=== PATIENT | male | born 1985 | race Caucasian/White ===

== ENCOUNTER 2019-06-15 20:23 | Emergency (ER) | payer OTHER ==
--- NOTE | 2019-06-15 21:57 | EDM.PDOC ---
ED HPI GENERAL MEDICAL PROBLEM - General Chief Complaint: Wound Recheck Stated Complaint: APPEX SURG ON THE NEEDS TO BE LOOKED AT Time Seen by Provider: 06/15/19 20:34 Source of Information: Reports: Patient, Family () History Limitations: Reports: No Limitations - History of Present Illness INITIAL COMMENTS - FREE TEXT/NARRATIVE: The patient states that he lives here in [place], but was up in [place] on 06/07/2019, when he required an open appendectomy for a perforated appendicitis. He was hospitalized through 06/12/2019, when he was discharged home with a prescription for Bactrim DS. He has an appointment to follow-up with his surgeon on , 06/20/2019. The patient now presents to the ED because of a concern of the yellowish reddish drainage from his surgical wound. He has been keeping it dry, with dressing changes daily, but the Steri-Strips across the wound have become bloody and several have detached. No recent fever. No recent nausea, vomiting, constipation, diarrhea, or urinary symptoms. The patient does not have a PCP. His Surgeon in [place] is Dr. Nicola Bhandari. Abdomen Pain Score (Numeric/FACES): 1 - Related Data Allergies Allergy/AdvReac Type Severity Reaction Status Date / Time No Known Allergies Allergy Verified 06/15/19 20:42 Past Medical History Endocrine/Metabolic History: Reports: Obesity/BMI 30+ - Past Surgical History HEENT Surgical History: Reports: Naso-Sinus Surgery, Oral Surgery (3 wisdom teeth extracted), Tonsillectomy GI Surgical History: Reports: Appendectomy (06/07/2019) Musculoskeletal Surgical History: Reports: Arthroscopic Knee (right x 2, left x 1) Social & Family History - Tobacco Use Smoking Status *Q: Never Smoker - Caffeine Use Caffeine Use: Reports: None - Alcohol Use Alcohol Use History: Yes Alcohol Use Frequency: Socially - Recreational Drug Use Recreational Drug Use: No - Living Situation & Occupation Living situation: Reports: , with Spouse, with Family (1 child) 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 ED EXAM, SKIN/RASH Exam: See Below Exam Limited By: No Limitations General Appearance: Alert, WD/WN, No Apparent Distress Eye Exam: Bilateral Eye: EOMI, Normal Inspection Ears: Normal External Exam, Hearing Grossly Normal Nose: Normal Inspection Throat/Mouth: Normal Inspection, Normal Lips, Normal Voice, No Airway Compromise Head: Atraumatic, Normocephalic Neck: Normal Inspection, Full Range of Motion Respiratory/Chest: No Respiratory Distress, Lungs Clear, Normal Breath Sounds, No Accessory Muscle Use Cardiovascular: Normal Peripheral Pulses, Regular Rate, Rhythm, No Gallop, No JVD, No Murmur, No Rub Peripheral Pulses: 4+: Radial (L), Radial (R) GI/Abdominal: Normal Bowel Sounds, Soft, No Organomegaly, No Distention, No Abnormal Bruit, No Mass, Other (There is an approximately 11 cm vertical midline surgical wound extending from just under the umbilicus, to the suprapubis, covered with Steri-Strips, several of which have become detached on one side. The skin edges of the wound are not approximated, revealing about 1.5 cm of subcutaneous tissue on either side of the wound. There is non-malodorous thick serous sanguinous fluid on the wound as well as on the surrounding skin. Also noted several centimeters to the left of the wound is an unpopped blister containing clear fluid.) (Male) Exam: Deferred Rectal (Males) Exam: Deferred Back Exam: Normal Inspection, Full Range of Motion, NT Extremities: Normal Inspection, Normal Range of Motion, No Pedal Edema, Normal Capillary Refill Neurological: Alert, Oriented, Normal Cognition, No Motor/Sensory Deficits Psychiatric: Normal Affect Skin: Warm, Dry, Normal Color, No Rash Course - Vital Signs Last Recorded V/S: Last Vital Signs Temp 35.9 C 06/15/19 20:30 Pulse 91 06/15/19 20:30 Resp 20 06/15/19 20:30 BP 133/97 H 06/15/19 20:30 Pulse Ox 97 06/15/19 20:30 - Re-Assessments/Exams Free Text/Narrative Re-Assessment/Exam: 06/15/19 21:46 Case discussed at length with Dr. Perez at 21:35. He recommended that I remove the Steri-Strips that have already come loose, and that I have the patient swab the exposed areas of his wound with Betadine once a day, then cover with a clean dressing. This will help to minimize serosanguineous drainage. The patient can then follow-up with either Dr. Mckeon or Opal Tompkins NP, on 06/18/2019. 06/15/19 21:57 The above suggestions were discussed with the patient and his . At this time , the patient is leaning towards discussing the Betadine option with his surgeon , and he is expecting to follow-up in [place] on 06/20/2019. I provided the patient and his with 3 packets of Betadine swabs and 3 packets of gauze, and I will discharge him home with the contact information for Dr. Mckeon and Opal Tompkins NP, should he elect to follow-up with either one of them. Departure - Departure Time of Disposition: 21:59 Disposition: Home, Self-Care 01 Condition: Good Clinical Impression: Encounter for post surgical wound check - Discharge Information *PRESCRIPTION DRUG MONITORING PROGRAM REVIEWED*: Not Applicable *COPY OF PRESCRIPTION DRUG MONITORING REPORT IN PATIENT VINCENT: Not Applicable Instructions: Wound Check Referrals: Nicola Bhandari MD [Physician] - Nelly Holden MD [Physician] - Opal Tompkins NP [Nurse Practitioner] - Forms: ED Department Discharge Additional Instructions: You were seen in the emergency room guarding concern of leakage from your open appendectomy surgical wound. On evaluation, the drainage appears to be serosanguineous, not purulent. There is no suggestion of an infection at this time. Your case was discussed with the surgeon Dr. Lester Perez, who suggested that you could remove the Steri-Strips where they have already come undone, and swab the wound with Betadine. This will decrease the amount of serosanguineous drainage. Alternatively, you may want to discuss this option with your [place] surgeon. You may follow-up with the surgeon Dr. Holden, or the surgical mid-level Opal Tompkins NP, on 06/18/2019. Alternatively, you may follow-up with your [place] surgeon Dr. Nicola Bhandari, at your previously scheduled appointment on , 06/20/2019. If any other problems, please do not hesitate to return to the ER.
== END 2019-06-15 22:20 | disposition home or self-care (01) ==
LOC: JD.ED 20:23
DX: Z48.815 Encounter for surgical aftercare following surgery on the digestive system (principal)
CPT/HCPCS: 99282